=== PATIENT | female | born 1970 | race Caucasian/White ===

== ENCOUNTER 2025-03-30 20:37 | Emergency (ER) | payer OTHER, MEDICAID, SELFPAY ==
--- OUTSIDE RECORDS SUMMARY | 2024-07-25 07:15 | XMS_ITS ---
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 STOMACH ISSUE. * Medical History: Objective: * Vitals: Assessment: Plan: * Treatment: * Images: * Electronic signature of ARNOLDO Dubon on 03/30/2025 at 08:54 PM EDT Sign off status: Pending * Provider: Natty Stanton CNP Date: 09/25/2023 Generated for Printi ng/Faxing/eTransmitting on: 0 03/30/2025 08:54 PM EDT
[2025-03-30 20:42] VITALS: BP 159/72; PULSE 67; TEMP 36.8; O2SAT 98; BMI 50.0
--- NOTE | 2025-03-30 21:00 | CT_ITS ---
The [address] [address] Patient Name: CHUY QUIGLEY MRN: [id number] date: 1970 Sex: F Assigned Patient Location: ED.MAIN Current Patient Location: ED.MAIN Accession/Order Number: [id number] Exam Date: 03/30/2025 21:39 Report Date: 03/30/2025 22:20 At the request of: CECE EDEN MD Procedure: CT abdomen pelvis w con CT abdomen pelvis w con 03/30/2025 9:45 PM SIGNS AND SYMPTOMS: ^Lower abd pain/low back pain ? appy ? stone \S.br\ TECHNIQUE: Multidetector ct axial images of the abdomen and pelvis were obtained with IV contrast. Multiplanar reformats were performed and reviewed to further define anatomy and possible pathology. CT was performed with one or more of the following dose reduction techniques: Automated exposure control, adjustment of the mA and/or kV according to patient size, or use of iterative reconstruction technique. COMPARISON: None. FINDINGS: Lower Chest: Mild scarring is in the lung bases. Atherosclerotic changes are noted at the mitral annulus. ABDOMEN: Liver: Within normal limits. Bile Ducts: Normal caliber. Gallbladder: Previously removed Pancreas: Within normal limits. Spleen: Within normal limits. Adrenals: Within normal limits. Kidneys: Simple cysts are noted in the right renal cortex requiring no further follow-up. Pelvis: Reproductive Organs: No pelvic masses. Ureters: Within normal limits. Bladder: Within normal limits. Bowel: There are uncomplicated colonic diverticula. The appendix has been previously removed. There is no evidence of bowel obstruction. There is soft tissue attenuating extending from the uterine fundus towards the sigmoid colon. This is nonspecific and may represent postoperative scarring relating to a previous section or secondary to previous diverticulitis. Mesenteric Lymph Nodes: No enlarged mesenteric lymph nodes. Peritoneum: No ascites or free air, no fluid collection. Vessels: Atherosclerotic changes are noted in the abdominal aorta and its branches. Retroperitoneum: Within normal limits. Abdominal Wall: Within normal limits. Bones: Degenerative changes are noted in the visualized thoracolumbar spine. CT/CT abdomen pelvis w con IMPRESSION: No bowel obstruction or obstructive uropathy. There is evidence of prior cholecystectomy and appendectomy. No renal, ureteral, or bladder stones. This is nonspecific and may represent postoperative scarring relating to a previous section or secondary to previous diverticulitis. This is most likely chronic in nature. Impression dictated by: Jose Alejandro Bhardwaj M.D. 03/30/2025 10:20 PM Dictation Location: [place] [address] Electronically authenticated by: [id number] Y Date: 03/30/2025 22:20
--- NOTE | 2025-03-30 21:02 | ED.ABDPAIN1 ---
HPI - Abdominal Pain General Chief Complaint: Urogenital-Female Stated Complaint: ABDOMINAL PAIN Time Seen by Provider: 03/30/25 20:43 Mode of arrival: ambulance History of Present Illness HPI narrative: This 55-year-old female with a history of borderline diabetes and morbid obesity presents for evaluation of low back pain and bilateral lower abdominal pain. The patient states last night she had pain across her lower back. Today she started having pain in her lower abdomen. She states it is worse in the left than the right. Patient states the pain radiates down into her legs. She had increasing pain when hitting bumps while driving in the car. She has not had any urinary frequency urgency or dysuria. She has not had any fevers or chills. She has not had any nausea or vomiting. She states she has herniated disc in her lumbar spine in the past after a fall. She denies any weakness numbness or tingling. She does not have any chest pain or shortness of breath. She states she has frequent diarrhea. She denies any constipation. She states she is going through perimenopause and after a year of not having any menstrual period started having bleeding for the past 2 months. She states her bleeding was so heavy that she bled through her close. She is not currently menstruating. She denies any dizziness or syncope. She states she took some ibuprofen with minimal relief. Not have a history of kidney stones or any abdominal surgery. Related Data Home Medications ?Medication ?Instructions ?Recorded ?Confirmed semaglutide 1 mg/dose (4 mg/3 mL) mg subcut 03/30/25 subcutaneous pen injector (Ozempic) Allergies Allergy/AdvReac Type Severity Reaction Status Date / Time No Known Drug Allergies Allergy Verified 03/30/25 20:49 Review of Systems ROS Status of ROS 10 or more systems reviewed and unremarkable except as noted in history and below PFSH PFSH Social History Little interest or pleasure in doing things: not at all Feeling down, depressed, or hopeless: not at all Exam Narrative Exam Narrative: Vital signs and Nursing Notes reviewed: Is afebrile with a normal pulse, blood pressure is elevated 159/72, she has not hypoxic with pulse ox of 98% on room air General: Awake, alert, oriented, no acute distress, lying comfortably on the stretcher HEENT: Normocephalic atraumatic, mucous membranes are moist and pink, eyes are clear, normal conjunctiva, vision is grossly intact, posterior pharynx is normal in appearance. Neck: Supple, no meningeal signs, no anterior or posterior cervical lymphadenopathy Chest: Lungs are clear to auscultation with good air entry, there is no wheezing rhonchi or rales appreciated no accessory muscle use, patient is speaking in complete sentences-no chest wall tenderness to palpation CVS: Regular rate and rhythm S1-S2, no murmurs rubs or gallops, pulses are brisk and equal bilaterally ABD: Obese, soft, nondistended, bilateral lower abdominal tenderness, abdominal habitus precludes precise evaluation of her abdomen but she is tender in the right lower quadrant and left lower quadrant. Palpation of the right lower quadrant causes pain across her lower abdomen and bladder. She does have some tenderness over her urinary bladder. Extremities: Moving all extremities, no lower extremity tenderness or swelling noted, negative Homans' sign, pulses are brisk and equal bilaterally Skin: Normal in appearance without rash,pallor, petechiae or purpura Neuro: No focal deficits Constitutional Vital Signs, click to edit/add: Last Vital Signs Temp 98.2 F 03/30/25 20:42 Pulse 67 03/30/25 20:42 Resp 18 03/30/25 20:42 BP 159/72 H 03/30/25 20:42 Pulse Ox 98 03/30/25 20:42 O2 Del Method Room Air 03/30/25 20:42 Course Vital Signs Vital signs: Vital Signs Temperature 98.2 F 03/30/25 20:42 Pulse Rate 67 03/30/25 20:42 Respiratory Rate 18 03/30/25 20:42 Blood Pressure 159/72 H 03/30/25 20:42 Pulse Oximetry 98 03/30/25 20:42 Oxygen Delivery Method Room Air 03/30/25 20:42 Temperature 98.2 F 03/30/25 20:42 Pulse Rate 67 03/30/25 20:42 Respiratory Rate 18 03/30/25 20:42 Blood Pressure 159/72 H 03/30/25 20:42 Pulse Oximetry 98 03/30/25 20:42 Oxygen Delivery Method Room Air 03/30/25 20:42 MDM - Abdominal Pain MDM Narrative Medical decision making narrative: This 55-year-old female presents for evaluation of back pain last night followed by lower abdominal pain this morning. She states the pain radiated into her legs was worse with movement and was more severe when she hit bumps while driving in the car. She has not had any fever. She denied any urinary symptoms. She does not have a history of any kidney stones. She does have a history of herniated disks in her back but her symptoms did not appear to be related to back pain. She was tender in the right lower quadrant and left lower quadrant and over the urinary bladder. Her vital signs were stable. An IV was placed and she was medicated with IV fluids and Toradol. These symptoms improved her pain somewhat. Routine labs are reviewed. She has a normal white count and stable hemoglobin. Electrolytes are normal. Urine is negative for infection. CT scan of the abdomen pelvis was ordered to rule out appendicitis, diverticulitis or other acute abdominal pathology. The patient is status post appendectomy and cholecystectomy. The CT scan shows uncomplicated colonic diverticula with no evidence of bowel obstruction. It did show soft tissue attenuation extending from the uterine fundus toward the sigmoid colon which appeared nonspecific and could represent postoperative scarring related to her previous or secondary to previous diverticulitis. According the patient she has never had any diverticulitis. There was no enlarged mesenteric nodes with normal peritoneum atherosclerotic changes in the abdominal aorta with normal retroperitoneum and abdominal wall. In light of these nonspecific changes she was treated empirically for diverticulitis. She was medicated with a dose of Cipro and Flagyl in the emergency department as well as a dose of Zofran and [place]. She was discharged home with prescription for Cipro and Flagyl to use for the next 7 days, [place] for pain, Zofran for nausea and Colace to prevent constipation. I suggested she follow-up with outpatient family medicine and return to emergency department for worsening symptoms, fever, inability tolerate her medications or any concerns. Lab Data Attestation: I reviewed the patient's lab results. Labs: Lab Results 03/30/25 03/30/25 Range/Units 21:08 21:22 WBC 9.5 (4.0-11.0) 10^3/uL RBC 4.15 L (4.20-5.40) 10^6/uL Hgb 13.5 (12.0-16.0) g/dL Hct 39.9 (36.0-48.0) % MCV 96.1 (81.0-99.0) fL MCH 32.5 (26.7-34.0) pg MCHC 33.8 (29.9-35.2) g/dL RDW 12.8 (11.0-15.0) % Plt Count 225 (150-450) 10^3/uL MPV 10.0 (9.5-13.5) fL Neut % (Auto) 64.2 (43.0-75.0) % Lymph % (Auto) 26.5 (20.5-60.0) % [place] % (Auto) 6.3 (1.7-12.0) % Eos % (Auto) 2.5 (0.9-7.0) % Baso % (Auto) 0.3 (0.2-2.0) % Neut # (Auto) 6.1 (1.4-6.5) 10^3/uL Lymph # (Auto) 2.5 (1.2-3.8) 10^3/uL [place] # (Auto) 0.6 (0.3-0.8) 10^3/uL Eos # (Auto) 0.2 (0.0-0.7) 10^3/uL Baso # (Auto) 0.0 (0.0-0.1) 10^3/uL Abs Immat Gran (auto) 0.02 (0.00-0.03) 10^3/uL Imm/Tot Granulo (auto) 0.2 (0.0-0.5) % Sodium 142 (136-145) mmol/L Potassium 3.9 (3.5-5.1) mmol/L Chloride 107 (98-107) mmol/L Carbon Dioxide 26.7 (21.0-32.0) mmol/L Anion Gap 12.2 BUN 14.0 (7.0-18.0) mg/dL Creatinine 0.81 (0.55-1.02) mg/dL Est GFR ( Amer) >60 (>=60 mL/min/1.73m^2) Est GFR (Non-Af Amer) >60 (>=60 mL/min/1.73m^2) BUN/Creatinine Ratio 17.3 Glucose 97 (74-106) mg/dL Calcium 9.3 (8.5-10.1) mg/dL Total Bilirubin 0.5 (0.2-1.0) mg/dL AST 28 (15-37) U/L ALT 44 (14-59) U/L Alkaline Phosphatase 66 (46-116) U/L Total Protein 7.5 (6.4-8.2) g/dL Albumin 3.6 (3.4-5.0) g/dL Globulin 3.9 g/dL Albumin/Globulin Ratio 0.9 Serum HCG, Qual Negative (NEGATIVE) Urine Color Lt. yellow (YELLOW) Urine Clarity Sl cloudy (CLEAR) Urine pH 5.5 (5.0-9.0) Ur Specific [place] 1.025 (1.005-1.025) Urine Protein Negative (NEG/TRACE) mg/dL Urine Glucose (UA) Negative (NEGATIVE) mg/dL Urine Ketones Negative (NEGATIVE) mg/dL Urine Occult Blood Negative (NEGATIVE) Urine Nitrite Negative (NEGATIVE) Urine Bilirubin Negative (NEGATIVE) Urine Urobilinogen 0.2 (0.2-1.0) EU/dL Ur Leukocyte Esterase Trace A (NEGATIVE) Urine RBC 0-2 (0-2) #/HPF Urine WBC 2-5 A (NONE SEEN) #/HPF Ur Squamous Epith Cells Moderate A (NONE/RARE) #/LPF Urine Crystals None seen (None Seen) #/HPF Urine Bacteria Small A (NONE SEEN) #/HPF Urine Casts Seen A (NONE SEEN) #/LPF Hyaline Casts Rare Urine Mucus Small A (NONE SEEN) Ur Culture Indicated? Yes-[facility] [place] Imaging Data CT scan - abdomen: Radiologist's impression: ITS Impressions Abdomen/Pelvis CT 03/30/25 21:00 IMPRESSION: No bowel obstruction or obstructive uropathy. There is evidence of prior cholecystectomy and appendectomy. No renal, ureteral, or bladder stones. This is nonspecific and may represent postoperative scarring relating to a previous section or secondary to previous diverticulitis. This is most likely chronic in nature. Impression dictated by: Jose Alejandro Bhardwaj M.D. 03/30/2025 10:20 PM Dictation Location[facility] Electronically authenticated by: [id number] Y Date: 03/30/2025 22:20 Discharge Plan Discharge Chief Complaint: Urogenital-Female Clinical Impression: Abdominal pain, Diverticulitis Patient Disposition: Home, Self-Care Time of Disposition Decision: 22:58 Condition: Good Prescriptions / Home Meds: No Action Ozempic 1 mg/dose (4 mg/3 mL) pen injector SUBCUT Print Language: Afghan Instructions: Diverticulitis (ED), Abdominal Pain (ED), Heat Pack Application (ED) Additional Instructions: Flagyl - twice daily for 7 days Cipro - twice daily for 7 days Colace - twice daily for 7 days for constipation Zofran - every 6 hours as needed for nausea [place] - every 4-6 hours as needed for pain Referrals: Physician,Non-Staff, [Primary Care Provider] - 1 week Discharge Date/Time: 03/30/25 23:39
[2025-03-30 21:18] LABS: Hematocrit 39.9 % (36.0-48.0); Hemoglobin 13.5 g/dL (12.0-16.0); Immature Granulocytes Abs Auto 0.02 10^3/uL (0.00-0.03); Immature Granulocytes Pct Auto 0.2 % (0.0-0.5); Lymphocytes Absolute Auto 2.5 10^3/uL (1.2-3.8); Mean Corpuscular HGB Conc 33.8 g/dL (29.9-35.2); Mean Corpuscular Hemoglobin 32.5 pg (26.7-34.0); Mean Corpuscular Volume 96.1 fL (81.0-99.0); Platelet Count 225 10^3/uL (150-450); Red Blood Count 4.15 10^6/uL (4.20-5.40); White Blood Count 9.5 10^3/uL (4.0-11.0)
[2025-03-30] MEDS: KETOROLAC TROMETHAMINE 30 MG/ML VIAL IVP (21:21)
[2025-03-30] MEDS: 0.9 % SODIUM CHLORIDE 1,000 ML 1000 ML IV (21:21)
[2025-03-30 21:32] LABS: Alanine Aminotransferase 44 U/L (14-59); Albumin Globulin Ratio 0.9; Albumin Level 3.6 g/dL (3.4-5.0); Alkaline Phosphatase 66 U/L (46-116); Anion Gap 12.2; Aspartate Amino Transferase 28 U/L (15-37); Blood Urea Nitrogen 14.0 mg/dL (7.0-18.0); Calcium 9.3 mg/dL (8.5-10.1); Carbon Dioxide 26.7 mmol/L (21.0-32.0); Chloride 107 mmol/L (98-107); Estimated GFR (African America >60 (>=60 mL/min/1.73m^2); Estimated GFR (Non-African Ame >60 (>=60 mL/min/1.73m^2); Globulin 3.9 g/dL; Glucose 97 mg/dL (74-106); Potassium 3.9 mmol/L (3.5-5.1); Sodium 142 mmol/L (136-145); Total Protein 7.5 g/dL (6.4-8.2)
[2025-03-30 21:34] LABS: Glucose Urine UA NEGATIVE (NEGATIVE)
[2025-03-30 21:39] LABS: Cast Seen? SEEN #/LPF (NONE SEEN); Crystals Seen? None Seen #/HPF (None Seen); Urine Culture Indicated YES-FRMC
[2025-03-30] MEDS: METRONIDAZOLE 250 MG TABLET 500 MG PO (23:25)
[2025-03-30] MEDS: HYDROCODONE/ACET 5-325 MG TABLET PO (23:28)
[2025-03-30] MEDS: ONDANSETRON 4 MG RAPDIS TABLET PO (23:28)
[2025-03-30] MEDS: CIPROFLOXACIN HCL 500 MG TABLET PO (23:29)
== END 2025-03-30 23:39 | disposition home or self-care (01) ==
PROVIDERS: Emergency Provider Emergency Medicine
DX: K57.92 Diverticulitis of intestine, part unspecified, without perforation or abscess without bleeding (principal); R10.31 Right lower quadrant pain; R10.32 Left lower quadrant pain; E66.01 Morbid (severe) obesity due to excess calories; R73.03 Prediabetes; Z68.43 Body mass index [BMI] 50.0-59.9, adult; Z90.49 Acquired absence of other specified parts of digestive tract
CPT/HCPCS: 36415; 74177; 80053; 81001; 84703; 85025; 87086; 96374; 99285; J1885; Q0162; Q9967